=== PATIENT | male | born 1985 | race Caucasian/White ===

== ENCOUNTER 2019-04-09 20:25 | Observation (INO) ==
--- NOTE | 2019-04-09 20:57 | PROVIDER DOCUMENTATION ---
HPI-Male Problem - General Chief Complaint: General Adult Stated Complaint: HEMATURIA Time Seen by Provider: 04/09/19 20:34 Allergies/Adverse Reactions: Patient Allergies Allergy/AdvReac Type Severity Reaction Status Date / Time No Known Allergies Allergy Verified 12/04/16 00:50 Home Medications: Home Medication List Medication Instructions Recorded Confirmed Last Taken Type NK [No Home Medications] 12/04/16 12/04/16 Unknown History Past History - Adult - PAST MEDICAL HISTORY-ADULT Major Childhood Illnesses: reports: denies history Neurological: reports: other (ADHD) - PRIOR SURGERIES/PROCEDURES Surgical/Procedure History: reports: none - IMMUNIZATION STATUS Childhood Immunizations: See Nurse Assessment Flu Vaccine: See Nurse Assessment Progress - PLAN OF CARE/RESULTS Progress/Plan/Lab Results: Vital Signs - 8 hr 04/09/19 20:27 Temperature 97.9 F Pulse Rate 74 Respiratory Rate 20 Blood Pressure 156/99 O2 Sat by Pulse Oximetry 97 Departure - Departure Referrals and Follow-Ups: None,PCP [Primary Care Provider] -
[2019-04-09 21:33] LABS: URINE SOURCE CLEAN CATCH
[2019-04-09 21:36] LABS: BASO# 0.01 X1000 (0.0-0.2); BASO% 0.1 % (0.0-0.8); EOS# 0.05 X1000 (0.0-0.7); EOS% 0.6 % (0.0-10.0); HEMATOCRIT 44.9 % (42.0-52.0); HEMOGLOBIN 15.7 g/dL (14.0-18.0); IMM GRAN# 0.02 X1000 (0.0-0.04); IMM GRAN% 0.2 % (0.0-0.5); LYMPH# 2.55 X1000 (1.2-3.4); LYMPH% 31.8 % (20.5-51.1); MCH 30.2 PG (27-31); MCV 86.3 FL (81-99); MONO# 0.45 X1000 (0.11-0.59); MONO% 5.6 % (1.7-9.3); MPV 10.8 FL (7.4-10.4); NEUT# 4.95 X1000 (1.4-6.5); NEUT% 61.7 % (42.2-75.2); PLT 159 X1000 (130-400); RDW 11.9 % (11.5-14.5); WBC 8.03 X1000 (4.8-10.8)
[2019-04-09 21:38] LABS: UR EPITHELIAL CELLS <10 /HPF (<10); URINE BACTERIA NEGATIVE /HPF; URINE RBC <10 /HPF (<10); URINE WBC <10 /HPF (<10)
[2019-04-09 21:41] LABS: BILIRUBIN URINE NEGATIVE (NEGATIVE); BLOOD URINE LARGE (NEGATIVE); COLOR BROWN; GLUCOSE URINE NEGATIVE (NEGATIVE); KETONE URINE NEGATIVE (NEGATIVE); LEUKOCYTES URINE NEGATIVE (NEGATIVE); NITRITE URINE NEGATIVE (NEGATIVE); PROTEIN URINE 200 mg/dL (NEGATIVE); SP GRAVITY URINE 1.024; TURBIDITY URINE CLEAR (CLEAR); UROBILINOGEN URINE NORMAL (NORMAL)
[2019-04-09 21:57] LABS: AGAP 13; BUN 14 mg/dL (8-22); CALCIUM 9.3 mg/dL (8.8-10.2); CHLORIDE 102 mmol/L (98-107); COSMO 281; CREATININE 0.9 mg/dL (0.7-1.2); ESTIMATED GFR > 60; GLUCOSE 93 mg/dL (70-104); POTASSIUM 4.1 mmol/L (3.5-5.1); SODIUM 141 mmol/L (136-145); TCO2 26 mmol/L (25-35)
[2019-04-09] MEDS ORDERED: NS 1,000 ML IV ONE ×3 (22:06→22:10)
[2019-04-09 22:09] LABS: CK TOTAL > 20000 U/L (24-204)
--- NOTE | 2019-04-09 22:54 | PROVIDER DOCUMENTATION ---
This chart was entered by Clara Cobb Scribe, acting as scribe for Shanta Wolf MD. HPI-Male Problem - General Chief Complaint: General Adult Stated Complaint: HEMATURIA Time Seen by Provider: 04/09/19 20:34 Source: patient Allergies/Adverse Reactions: Patient Allergies Allergy/AdvReac Type Severity Reaction Status Date / Time No Known Allergies Allergy Verified 12/04/16 00:50 Home Medications: Home Medication List Medication Instructions Recorded Confirmed Last Taken Type NK [No Home Medications] 12/04/16 12/04/16 Unknown History - History of Present Illness-Male Nature of Presenting Problem: 33 yom c/o hematuria starting today. pt is incarcerated and has been doing 300 squats. He states that he normally does 700 but he took some time off and then started up again at 300 squats. pt denies body aches, fever and chills. He denies any burning when he pees or penile discharge but just states that it is very darm and noticed some blood. Denies any abdominal pain nausea or vomiting. Quality of Pain: reports: none Timing: reports: still present Urinary Symptoms: reports: hematuria Review of Systems - Adult - REVIEW OF SYSTEMS - ADULT Constitutional: reports: no symptoms reported. denies: chills, fever, fatique Eyes: reports: no symptoms reported Ears, Nose, Mouth & Throat: reports: no symptoms reported Cardiovascular: reports: no symptoms reported Respiratory: reports: no symptoms reported Gastrointestinal: reports: no symptoms reported Genitourinary: reports: see HPI, hematuria Musculoskeletal: reports: no symptoms reported. denies: muscle aches, muscle weakness Integumentary: reports: no symptoms reported Neurological: reports: no symptoms reported Psychiatric: reports: no symptoms reported Endocrine: reports: no symptoms reported Hematologic/Lymphatic: reports: no symptoms reported Allergic/Immunologic: reports: no symptoms reported All Other Systems: Reviewed and Negative Past History - Adult - PAST MEDICAL HISTORY-ADULT Review of Records: reports: Old Records Reviewed, Nursing Assessment Review, Medications Reviewed, Social history reviewed & non-contributory. Major Childhood Illnesses: reports: denies history Cardiovascular: reports: denies history Respiratory: reports: denies history Gastrointestinal: reports: denies history Obstetrical/Gynecological: reports: denies history Genitourinary: reports: denies history Musculoskeletal: reports: denies history Neurological: reports: other (ADHD) Psychiatric: reports: suicide attempt, other (adhd) Endocrine/Immune: reports: denies history Other Conditions: reports: denies history - PRIOR SURGERIES/PROCEDURES Surgical/Procedure History: reports: none - IMMUNIZATION STATUS Childhood Immunizations: See Nurse Assessment Flu Vaccine: See Nurse Assessment - FAMILY HISTORY Family History: reviewed, not pertinent - SOCIAL HISTORY Smoking: cigarettes, less than 1 pack/day Provider spent 3-5 mins advising pt. on dangers of tobacco.: Discussed manners to quit use, and f/u contacts for add'l counseling. Substance Use: alcohol, marijuana Alcohol Use Frequency: every day Physical Exam-General - PHYSICAL EXAM-ADULT Initial Vital Signs Reviewed: Yes - CONSTITUTIONAL General Appearance: appears well, alert, no apparent distress. negative: cachetic, lethargic, obtunded - EYES Eyes: PERRL/EOMI, pink conjunctivae - HEAD, EARS, NOSE, MOUTH & THROAT HENMT: normocephalic/atraumatic, moist mucous membranes, normal ENT inspection - NECK Neck: non-tender, full range of motion, supple, normal inspection - RESPIRATORY Respiratory: chest non-tender, lungs clear, normal breath sounds - CARDIOVASCULAR Cardiovascular: normal peripheral pulses, regular rate, rhythm - GASTROINTESTINAL (ABDOMEN) Abdominal Exam: normal bowel sounds, non tender, soft - MUSCULOSKELETAL Back Exam: normal inspection, no CVA tenderness, no vertebral tenderness Extremity: normal range of motion, non-tender, normal gait, normal inspection Peripheral Pulses: radial (R): 2+, radial (L): 2+ - SKIN Integumentary: normal color, normal turgor, warm/dry - NEUROLOGIC Neurologic: grossly normal, no motor/sensory deficits - PSYCHIATRIC Psych/Mental Status: normal mood/affect, normal thought content, normal thought process, oriented x 3 Progress - PLAN OF CARE/RESULTS Progress/Plan/Lab Results: Vital Signs - 8 hr 04/09/19 20:27 04/09/19 22:49 04/09/19 22:51 Temperature 97.9 F Pulse Rate 74 Respiratory Rate 20 Blood Pressure 156/99 131/79 O2 Sat by Pulse Oximetry 97 98 98 Laboratory Results - last 24 hr 04/09/19 04/09/19 04/09/19 21:22 21:22 21:22 WBC 8.03 RBC 5.20 Hgb 15.7 Hct 44.9 MCV 86.3 MCH 30.2 MCHC 35.0 RDW Std Deviation 11.9 Plt Count 159 MPV 10.8 H Immature Gran % (Auto) 0.2 Neut % (Auto) 61.7 Lymph % (Auto) 31.8 [place] % (Auto) 5.6 Eos % (Auto) 0.6 Baso % (Auto) 0.1 Immature Gran # (Auto) 0.02 Neut # (Auto) 4.95 Lymph # (Auto) 2.55 [place] # (Auto) 0.45 Eos # (Auto) 0.05 Baso # (Auto) 0.01 Sodium 141 Potassium 4.1 Chloride 102 Carbon Dioxide 26 Anion Gap 13 BUN 14 Creatinine 0.9 Estimated GFR/1.73 m2 > 60 BUN/Creatinine Ratio 16 Glucose 93 Calculated Osmolality 281 Calcium 9.3 Creatine Kinase > 70348 H Urine Source CLEAN CATCH Urine Color BROWN Urine Turbidity CLEAR Urine pH 6.0 Ur Specific [place] 1.024 Urine Protein 200 A Ur Glucose (Stick) NEGATIVE Ur Ketones (Stick) NEGATIVE Urine Blood LARGE A Urine Nitrite NEGATIVE Urine Bilirubin NEGATIVE Urobilinogen Dipstick NORMAL Urine Leukocytes NEGATIVE Urine WBC (Auto) <10 Urine RBC (Auto) <10 U Epithel Cells (Auto) <10 Urine Bacteria (Auto) NEGATIVE Orders Category Date Time Status BASIC METABOLIC PANEL [CHEM] Stat Lab 04/09/19 21:22 Completed CBC WITH ELECTRONIC DIFF [HEME] Stat Lab 04/09/19 21:22 Completed CK TOTAL [CHEM] Stat Lab 04/09/19 21:22 Completed URINALYSIS W/POSS RFLX CULT [URINALYSIS] Stat Lab 04/09/19 21:22 Completed 0.9% Sodium Chloride Inj [Ns] 1,000 ml Med 04/09/19 22:10 Active IV 150 mls/hr 0.9% Sodium Chloride Inj [Ns] 1,000 ml Med 04/09/19 22:06 Discontinued IV 999 mls/hr 0.9% Sodium Chloride Inj [Ns] 1,000 ml Med 04/09/19 22:10 Discontinued IV 999 mls/hr Transfer/Admit Order [TRANSFER] Routine Transfer 04/09/19 23:29 Ordered Patient with CPK >18391. Cr normal. Given 2L NS and ordered to continue 150cc/hr. SPoke to Dr Crow compressor station engineer chief for hospitalist who accepted patient for admission. Further orders to be placed by their team. Result Diagrams: 04/09/19 21:22 04/09/19 21:22 Departure - Departure Date of Disposition Decision: 04/09/19 Time of Disposition Decision: 22:54 DIAGNOSIS: Rhabdomyolysis Disposition: ADMITTED INPATIENT 09 Certified Medical Emergency: Emergent Condition: Stable - Critical Care Note This patient required my direct & personal management of CC.: No Attestation - Physician/ LESLIE Attestation Patient care was provided by Advanced Practice Provider:: No The physician spent face to face time with patient:: Yes Advanced Practice Provider documentation review:: Supervising physician onsite and consulted in the evaluation and care of this patient. The physician did have a face to face encounter with the patient. This chart was documented by the indicated scribe, (Clara Cobb Scribe) and accurately reflects the services I performed and decisions made by me, Shanta Wolf MD, as attested by the provider's signature.
[2019-04-10] MEDS ORDERED: ZOFRAN IV PRN (01:07)
[2019-04-10] MEDS: SODIUM BICARBONATE 8.4% 150 MEQ in D5W 1,000 ML IV SCH ×3 (01:07→13:02)
[2019-04-10] MEDS ORDERED: TYLENOL PO PRN (01:07)
--- NOTE | 2019-04-10 03:38 | HISTORY AND PHYSICAL ---
CHIEF COMPLAINT: Hematuria. HISTORY OF PRESENT ILLNESS: The patient is a 33-year-old male who states that he was doing several squats earlier today. He states he had been doing up to 700, but he has been taking a break until just recently. Today he had done approximately 300 squats, he started having muscle aches later on the afternoon. No real fevers or chills. Denies any cough or congestion. He started peeing what he felt like was blood. He therefore was brought to the ER. ALLERGIES: No known drug allergies. MEDICATIONS: None. REVIEW OF SYSTEMS: Prior to today's episode of hematuria, the patient denies any fevers, chills, cough or congestion. Denies any dysuria, frequency, urgency, hesitancy. Denies any previous blood in his urine or blood in his stool. Denies any constipation or diarrhea. Denies dysuria, urinary frequency, urgency, hesitancy, polyuria or polydipsia. Currently he is noting to have severe muscle aches mainly in his thighs and calves, really no muscle aches in his upper body. He states this all started this afternoon after his intense workout. PAST MEDICAL HISTORY: He has a history of ADHD, history of suicide attempt. SOCIAL HISTORY: The patient has a history of smoking a pack a day. He does have a history of substance use with alcohol and marijuana, although he is currently incarcerated and is not participating in those activities currently. PHYSICAL EXAMINATION: VITAL SIGNS: Reviewed. Temperature 97.9 degrees, pulse 74, respiratory rate 20, BP 156/99, O2 sat is 97% on room air. GENERAL: The patient is awake, alert, very pleasant to talk with. He is in no current respiratory distress. HEENT: Normocephalic. NECK: Supple. CARDIOVASCULAR: Regular rate. CHEST: Clear and nonlabored. ABDOMEN: Soft and nondistended. EXTREMITIES: Moves all extremities, although he does have significant pain with moving his lower extremities. He has no edema. SKIN: Warm, dry, no rashes. NEUROLOGIC: He is awake, alert and oriented. He is in no distress. Speech is regular. Memory is intact. LABORATORY DATA: CBC normal. CMP normal. His creatine kinase is elevated at 2000. UA with large blood. ASSESSMENT: 1. Rhabdomyolysis with a CPK of 20,000. 2. Chronic tobacco abuse. PLAN: We will admit the patient to the hospital. We will place him on a bicarbonate drip given his elevation at 20,000. We will recheck CPK in the a.m. and we will follow. cc: Sher Crow MD
[2019-04-10 05:24] LABS: AGAP 8; BUN 12 mg/dL (8-22); CALCIUM 8.5 mg/dL (8.8-10.2); CHLORIDE 103 mmol/L (98-107); COSMO 271; ESTIMATED GFR > 60; GLUCOSE 85 mg/dL (70-104); POTASSIUM 3.9 mmol/L (3.5-5.1); SODIUM 136 mmol/L (136-145); TCO2 25 mmol/L (25-35)
[2019-04-10 05:27] LABS: CK PROFILE > 20000 U/L (24-204)
[2019-04-10 16:08] LABS: UR AMPHETAMINES QUAL NONE DETECTED (NONE DETECT); UR BARBITUATES QUAL NONE DETECTED (NONE DETECT); UR BENZODIAZEPIN QUAL NONE DETECTED (NONE DETECT); UR CANNABINOIDS QUAL NONE DETECTED (NONE DETECT); UR COCAINE QUAL NONE DETECTED (NONE DETECT); UR METHADONE QUAL NONE DETECTED (NONE DETECT); UR OPIATES QUAL NONE DETECTED (NONE DETECT); UR OXYCODONE QUAL NONE DETECTED (NONE DETECT); UR PCP QUAL NONE DETECTED (NONE DETECT)
[2019-04-10] MEDS ORDERED: NS 1,000 ML IV ONE (16:44)
--- NOTE | 2019-04-10 17:51 | PROGRESS NOTE ---
DATE: 04/10/2019 SUBJECTIVE: The patient is looking well. No major complaints. He is still complaining of muscle cramping. OBJECTIVE: Vital signs: Blood pressure is 130/85, heart rate of 91, respiratory rate 20, temperature 98.2 degrees, 98% on room air. Cardiovascular: Regular rate and rhythm. Pulmonary: Bilateral breath sounds. Clear to auscultation. GI: Soft, nontender, nondistended. Bowel sounds are positive. LABORATORY DATA: CK still greater than 20,000. PROBLEM LIST: Acute rhabdomyolysis due to over exertion and possible muscle trauma. We will continue IV fluids and follow. His CPK really has not improved at all, so we will continue. I am going to give him an extra bolus and continue the bicarbonate drip. I think that is appropriate in this setting. DISPOSITION: Pending clinical status. We are going to continue to follow. cc: Kevin Tafoya MD
[2019-04-11] MEDS: SODIUM BICARBONATE 8.4% 150 MEQ in D5W 1,000 ML IV SCH ×3 (00:39→20:17)
[2019-04-11 05:57] LABS: BASO# 0.01 X1000 (0.0-0.2); BASO% 0.2 % (0.0-0.8); EOS# 0.16 X1000 (0.0-0.7); EOS% 2.7 % (0.0-10.0); HEMATOCRIT 42.6 % (42.0-52.0); HEMOGLOBIN 15.2 g/dL (14.0-18.0); LYMPH# 2.35 X1000 (1.2-3.4); LYMPH% 39.2 % (20.5-51.1); MCH 30.6 PG (27-31); MCHC 35.7 g/dL (33-37); MCV 85.7 FL (81-99); MONO# 0.45 X1000 (0.11-0.59); MONO% 7.5 % (1.7-9.3); NEUT# 3.03 X1000 (1.4-6.5); NEUT% 50.4 % (42.2-75.2); PLT 147 X1000 (130-400); RBC 4.97 XMIL (4.7-6.1); RDW 11.7 % (11.5-14.5)
[2019-04-11 06:32] LABS: AGAP 10; BUN 13 mg/dL (8-22); CALCIUM 8.6 mg/dL (8.8-10.2); CHLORIDE 102 mmol/L (98-107); COSMO 279; CREATININE 0.8 mg/dL (0.7-1.2); ESTIMATED GFR > 60; GLUCOSE 92 mg/dL (70-104); POTASSIUM 3.6 mmol/L (3.5-5.1); SODIUM 140 mmol/L (136-145); TCO2 28 mmol/L (25-35)
[2019-04-11 06:52] LABS: CK TOTAL > 20000 U/L (24-204)
[2019-04-11] MEDS ORDERED: NS 1,000 ML IV ONE (09:24)
[2019-04-11] MEDS: ZANAFLEX PO PRN ×2 (11:41→23:11)
[2019-04-11 13:36] LABS: URINE SOURCE VOIDED
[2019-04-11 14:15] LABS: BILIRUBIN URINE NEGATIVE (NEGATIVE); BLOOD URINE MODERATE (NEGATIVE); COLOR STRAW; GLUCOSE URINE NEGATIVE (NEGATIVE); KETONE URINE NEGATIVE (NEGATIVE); LEUKOCYTES URINE NEGATIVE (NEGATIVE); NITRITE URINE NEGATIVE (NEGATIVE); PROTEIN URINE NEGATIVE (NEGATIVE); SP GRAVITY URINE 1.008; TURBIDITY URINE CLEAR (CLEAR); UROBILINOGEN URINE NORMAL (NORMAL)
[2019-04-11 14:18] LABS: UR EPITHELIAL CELLS <10 /HPF (<10); URINE BACTERIA NEGATIVE /HPF; URINE RBC <10 /HPF (<10); URINE WBC <10 /HPF (<10)
--- NOTE | 2019-04-11 15:27 | PROGRESS NOTE ---
DATE: 04/11/2019 SUBJECTIVE: Patient has no major complaints except for muscle spasms and twitching. OBJECTIVE: Blood pressure 143/83, heart rate 66, respiratory rate of 20, temperature 97.6 degrees, and 97% on room air.Cardiovascular: Regular rate and rhythm. Pulmonary: Bilateral breath sounds. Clear to auscultation. GI: Soft, nontender, and nondistended. Bowel sounds are positive. Extremities: No clubbing or cyanosis. Lymphatic: No peripheral edema. Neurological: Nonfocal. There is no nahid muscle myalgias. PROBLEMS: Acute rhabdomyolysis presumably related to over exertion or dehydration and muscle damage relating in a profound rhabdomyolysis. His CPK is greater than 20,000 which puts him at high risk for possible kidney injury although we do not have any evidence of that at this point. In any case, we are going to continue hydration. I am going to give him another L of fluid and continue his bicarbonate drip. We will check the pH of his urine, and decide if the alkalinization is sufficient based on the pH which it is. The pH is 8, I think that is well within the range for good alkalinization so we are just going to have to wait it out. I discussed the case briefly with Dr. Leon who recommended just to monitor. His CPK levels are probably much greater than 20,000, than they are diluting down, but it may take several days before they come to an acceptable level. cc: Kevin Tafoya MD
[2019-04-12 06:02] LABS: BASO# 0.01 X1000 (0.0-0.2); BASO% 0.2 % (0.0-0.8); EOS# 0.18 X1000 (0.0-0.7); HEMATOCRIT 42.7 % (42.0-52.0); LYMPH# 2.43 X1000 (1.2-3.4); LYMPH% 40.2 % (20.5-51.1); MCH 30.4 PG (27-31); MCHC 35.1 g/dL (33-37); MCV 86.4 FL (81-99); MONO# 0.38 X1000 (0.11-0.59); MONO% 6.3 % (1.7-9.3); MPV 11.1 FL (7.4-10.4); NEUT# 3.05 X1000 (1.4-6.5); NEUT% 50.3 % (42.2-75.2); PLT 156 X1000 (130-400); RBC 4.94 XMIL (4.7-6.1); RDW 11.8 % (11.5-14.5); WBC 6.05 X1000 (4.8-10.8)
[2019-04-12] MEDS: SODIUM BICARBONATE 8.4% 150 MEQ in D5W 1,000 ML IV SCH ×2 (06:21→09:23)
[2019-04-12 06:50] LABS: AGAP 10; BUN 14 mg/dL (8-22); CHLORIDE 104 mmol/L (98-107); CK TOTAL 706 U/L (24-204); COSMO 283; CREATININE 0.8 mg/dL (0.7-1.2); ESTIMATED GFR > 60; GLUCOSE 90 mg/dL (70-104); POTASSIUM 4.2 mmol/L (3.5-5.1); SODIUM 142 mmol/L (136-145); TCO2 28 mmol/L (25-35)
[2019-04-12] MEDS: ZANAFLEX PO PRN (09:44)
[2019-04-12 12:48] VITALS: BP 128/69
--- NOTE | 2019-04-13 06:37 | DISCHARGE SUMMARY ---
ADMISSION DATE: 04/10/2019 DISCHARGE DATE: 04/12/2019 DISCHARGE DIAGNOSIS: Still rhabdomyolysis due to over exertion, excessive exercise. 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 Workup in the ER revealed a CPK that was greater than 20,000, although with intact kidney function. He had large blood, but no red blood cells. Urine drug screen was clear. He was given fluids and then sodium bicarbonate. It took several days, but finally his CPK came down to a level of 706 and he was felt stable for discharge. Creatinine was normal during his course. Discharge creatinine 0.8 and he was felt stable for discharge. I would recommend follow up basic in 1 to 2 weeks with a CK level. I advised him to avoid strenuous activity for at least the next week and to stay hydrated. TIME SPENT: 32 minute discharge. MEDICATIONS: No medication changes. cc: Kevin Tafoya MD
== END 2019-04-12 14:36 ==
LOC: ED 20:25 → INTOOBSV 04-10 00:34 → EDIPHOLD 04-10 00:34 → SUATTDRO 04-10 00:34 → 4N 04-10 09:15
PROVIDERS: ATTEND Internal Medicine